=== PATIENT | male | born 1970 | race Caucasian/White ===

== ENCOUNTER 2019-02-25 15:22 | Outpatient (CLI) | payer BC, SELFPAY ==
--- NOTE | 2019-02-25 15:11 | DI.RAD_ITS ---
SYMPTOMS/DIAGNOSIS: RIGHT SHOULDER INJURY RIGHT SHOULDER: Two views were obtained. There is deformity of the humeral head consistent with old healed fracture. Mild degenerative changes noted involving the acromioclavicular and glenohumeral joints. No other significant bony abnormality seen.
== END 2019-02-25 15:42 ==
PROVIDERS: PCP Family Medicine; Visit Provider Physician Assistant
DX: S14.3XXA Injury of brachial plexus, initial encounter (principal); S43.004A Unspecified dislocation of right shoulder joint, initial encounter; M19.011 Primary osteoarthritis, right shoulder; M21.821 Other specified acquired deformities of right upper arm; Z87.81 Personal history of (healed) traumatic fracture
CPT/HCPCS: 73030

== ENCOUNTER 2019-03-06 01:14 | Outpatient (CLI) | payer BC, SELFPAY ==
--- NOTE | 2019-03-06 15:02 | DI.MRI_ITS ---
SYMPTOM/DIAGNOSIS: SHOULDER M75.01 CAPSULITIS RIGHT SHOULDER RIGHT SHOULDER MRI: Routine examination was performed. The supraspinatus, infraspinatus, teres minor , subscapularis tendons are intact. No evidence of a rotator cuff tear is seen. The rotator cuff muscle shows normal signal and size. No significant muscular fatty atrophy is identified. The biceps tendon has a normal appearance and location. The labrum appears grossly unremarkable on this noncontrast examination,. The articular cartilage at the glenohumeral joint appears well maintained. No significant focal fluid collection or soft tissue mass is appreciated. Moderate degenerative changes are seen at the acromioclavicular joint. There is mild edema seen in the greater tuberosity. No definite evidence of an occult fracture are present. IMPRESSION: No evidence of a rotator cuff or labral tear seen on this noncontrast examination. 2. Degenerative changes are seen about the shoulder particularly the acromioclavicular joint.
== END 2019-03-06 01:34 ==
PROVIDERS: PCP Family Medicine; Visit Provider Physician Assistant
DX: M75.01 Adhesive capsulitis of right shoulder (principal); M25.511 Pain in right shoulder; M19.011 Primary osteoarthritis, right shoulder
CPT/HCPCS: 73221

== ENCOUNTER 2019-03-06 16:04 | Outpatient (CLI) | payer BC, SELFPAY ==
[2019-03-08 09:46] LABS: PSA, Screening 0.8 ng/ml (0-3.5)
== END 2019-03-06 16:24 ==
PROVIDERS: PCP Family Medicine; Visit Provider Emergency Medicine
DX: Z12.5 Encounter for screening for malignant neoplasm of prostate (principal)
CPT/HCPCS: 36415; 84153

== ENCOUNTER 2019-06-11 14:37 | Outpatient (CLI) | payer BC, SELFPAY ==
--- NOTE | 2019-06-11 14:03 | DI.RAD_ITS ---
EXAM: XR SHOULDER RT COMPLETE 2+V INDICATION: ADHESIVE CAPSULITIS. COMPARISON: RIGHT SHOULDER COMPLETE from 09/13/2016 XR shoulder RT complete 2+V from 02/25/2019 TECHNIQUE: 2D digital imaging was performed. FINDINGS: There is an old healed proximal right humeral fracture. No acute fracture or dislocation is present. Degenerative changes are seen at the acromioclavicular joint. The glenohumeral joint appears well maintained. The soft tissues are unremarkable. IMPRESSION: No acute abnormality. If there is concern for internal derangement, an MRI may be obtained for furth er evaluation.
== END 2019-06-11 14:57 ==
PROVIDERS: PCP Family Medicine; Visit Provider Student in an Organized Health Care Education/Training Program
DX: M75.01 Adhesive capsulitis of right shoulder; Z87.81 Personal history of (healed) traumatic fracture
CPT/HCPCS: 73030

== ENCOUNTER 2019-12-23 11:12 | Day surgery (SDC) | payer BC, SELFPAY ==
--- NOTE | 2019-12-23 07:17 | W.COLOREPORT ---
Date of service: 12/23/19 Time of Service: 12:08 Colonoscopy Report Date of procedure: 12/23/19 Pre-op diagnosis general: Colon Cancer Screening Post-op diagnosis procedure note: other (rectal polyps) Procedure: Colonoscopy with polypectomy Surgeon: Jayda Frausto Anesthesia proc note operative: other (General/ ASA 2/Seth Macdonald CRNA ) Complications: None Disposition: no change Indications: A\\ 48 year old, healthy male, who is here to discuss his first screening colonoscopy. He has no family history of Colon Cancer and no GI complaints P\\ Colonoscopy under sedation Risks, benefits and complications have been reviewed. Complications include but are not limited to bleeding, pain, perforation, missed small lesion/polyp, sore throat, aspiration and adverse reaction to the medications. Questions were entertained and answered to their satisfaction and they wished to proceed. No guarantees were given or implied. Prep: Miralax/Dulcolax Procedure Start Time: 12:08 Procedure End Time: 12:32 Retraction Time: 16 minutes Findings: 2 small rectal polyps Procedure Description: After informed consent was obtained the patient was taken to the procedure room and placed in a left decubitous position. Monitors were applied and a time out was done. The patients name, date of , procedure, allergies to medications and metal in their body was reviewed. The patient was then sedated. Once sedated and comfortable a rectal exam was done. External exam was normal. Internal exam revealed a normal sphincter tone and no palpable masses. The prostate felt smooth and normal sized. The scope was then introduced and retro-flexed. No internal hemorrhoids, masses or polyps were identified on retro-flexion. The scope was then advanced to the cecum without difficulty. The ileocecal valve and appendiceal orifice were identified. The prep was good. The scope was then slowly retracted over 16 minutes back into the rectum. Polyps were removed with cold forceps in the rectum x 2. The scope was removed and the patient was woken up and taken back to Same day surgery in stable condition. The patient tolerated the procedure well and there were no immediate complications. Follow up: Follow up will depend on final pathology results.
--- NOTE | 2019-12-23 07:18 | PDOC.DSDIS_ITS ---
Discharge Plan Disposition Patient Disposition: HOME Condition: Good Discharge Details Reason For Visit: Colon Cancer Screening Attending Provider: Jayda Frausto Primary Care Provider: Jorge A Baker Home Meds and New Rx's Prescriptions: Continued acyclovir 800 MG tablet 2 tab PO BID PRNQty: 50 RF: 0 Discontinued bisacodyl [Dulcolax (bisacodyl)] 5 mg tablet,delayed release (DR/EC) 5 mg PO ONCE Qty: 4 RF: 0 polyethylene glycol 3350 17 gram powder in packet 255 g PO DAILY Qty: 15 RF: 0 Discharge Instructions Additional Instructions: Findings: 2 small polyps, most likely benign Follow up: most likely 10 years unless the pathology results show a pre- malignant polyp Please call if you develop: fevers >101.5 Nausea or Vomiting Abdominal pain that is not transient DAY SURGERY UNIT POST ENDOSCOPY INSTRUCTIONS 1. Because there will be medication in your system for the next 24 hours, you may feel a little sleepy. Your coordination will be affected. Therefore: a. Do not drive or operate dangerous equipment for 24 hours. b. Do not drink alcohol beverages for 24 hours (not even beer). c. Plan to go home and rest for the day. 2. Generally there are no restrictions on your activity after a day or so has gone by, but you may feel a bit fatigued for a few days. 3 After you arrive home you may have a light meal and return to a normal diet as you can tolerate it without feeling sick to your stomach. 4. After surgery, you may feel pain or discomfort. This should be only transient, but if it persists please contact your doctor. 5. If there are any questions regarding the findings of your procedure, please feel free to contact your doctor. 6. If you are unable to contact your doctor with a problem, contact the hospital at [phone]. 7. Continue all your regular medications unless directed otherwise. I understand the above instructions and have no questions. Signature of Patient or Responsible Adult Escort Date/Time Name of Responsible Adult Escort Signature of Nurse Date/Time Activity:: Activity as Tolerated Diet:: As Tolerated Discharge Orders Discharge Orders: Discharge Order (Routine); Ordered 12/23/19 Ordered By: Jayda Frausto
[2019-12-23 11:28] VITALS: BP 130/87; PULSE 58; RESP 18; TEMP 37.1; O2SAT 99
[2019-12-23] MEDS: Lactated Ringers 1,000 ML 80 ML IV (11:47)
--- NOTE | 2019-12-23 12:32 | BOWEL_PTH ---
PATIENT: Jorje Doshi LOC: [facility] U#:[id number] AGE/SX: 48/M ROOM: RE12/23/[address]: Jayda Frausto MD : [id number] BED: DIS: 12/23/2019 SPEC #: [id number] RECD: 12/23/19 12:51 STATUS: JAMAAL REQ #: [id number] BRENNA: 12/23/19 12:[address]: Jayda Frausto DEPT: Surgical Specimen RECD BY: Chantel Robbins ENTERED: 12/23/19 12:51 SP TYPE: Bowel OTHR DR: Jorge A Baker MD Tissues: 1 - BIOPSY BOWEL Procedures: GROSS AND MICRO LEVEL 4 Comments: [id number]
[2019-12-23 13:16] VITALS: BP 134/86; PULSE 59; RESP 17; TEMP 36.2; O2SAT 100
== END 2019-12-23 13:33 | disposition home or self-care (01) ==
LOC: SUR 11:12
PROVIDERS: PCP Family Medicine; Visit Provider Surgery
PROC: 0DJD8ZZ Inspection of Lower Intestinal Tract, Via Natural or Artificial Opening Endoscopic (ICD-10-PCS; CPT 45378; principal; 2019-12-23 12:00)
DX: Z12.11 Encounter for screening for malignant neoplasm of colon (principal); K62.1 Rectal polyp
CPT/HCPCS: 45380; 88305; J2001

== ENCOUNTER 2020-01-07 10:51 | Outpatient (CLI) | payer BC, SELFPAY ==
--- NOTE | 2020-01-07 10:00 | DI.RAD_ITS ---
EXAM: XR KNEE LT 3V AP,LAT,ANN CLINICAL HISTORY: left knee pain. TECHNIQUE: 2D digital imaging was performed. COMPARISON: No exams were available for comparison FINDINGS: BONES: No acute fracture is present. No bony destructive lesion is seen. JOINTS: The knee is normally aligned. No joint effusion is seen. Small osteophytes at the posterior p atella. SOFT TISSUE: Normal. IMPRESSION: Mild degenerative changes of the left knee. DATA REPOSITORY: RADIATION DOSE DELIVERED:
== END 2020-01-07 11:11 ==
PROVIDERS: PCP Family Medicine; Referring Provider Family Medicine; Visit Provider Student in an Organized Health Care Education/Training Program
DX: M25.562 Pain in left knee (principal); M17.12 Unilateral primary osteoarthritis, left knee
CPT/HCPCS: 73562

== ENCOUNTER 2020-06-01 11:45 | Emergency (ER) | payer BC, SELFPAY ==
[2020-06-01 11:55] VITALS: BP 131/90; PULSE 84; RESP 18; TEMP 36.7; O2SAT 99
--- NOTE | 2020-06-01 13:20 | W.ED.GENAD ---
Discharge Plan Disposition Patient Disposition: HOME Condition: Stable Discharge Details Clinical Impression: Finger laceration Primary Care Provider: Shaneka Fields ED Provider: Jaylen Matta Home Meds and New Rx's Prescriptions: Continued acyclovir 800 MG tablet 2 tab PO BID PRNQty: 50 RF: 0 Discharge Instructions Instructions: Finger Laceration (ED) Additional Instructions: Keep the wound clean and dry, change dressing daily. Wear splint to avoid tearing open the sutures. [id number] Tylenol and/or Motrin as directed for discomfort. Sutures removed in the next 10-14 days. Please watch for new or worsening symptoms and return to the ER for any concerns peer Discharge Data Discharge Date/Time-TO BE ENTERED AT DEPARTURE: 06/01/20 13:59 Medical Decision Making 49-year-old gentleman presents with a left fifth finger laceration, he is left-hand dominant. He sustained this shortly prior to presentation while hunting, he was moving brush. He denies numbness, tingling, weakness or any other injury. We were able to verify that his last tetanus status update was 2011. There is no active bleeding or obvious foreign body. No clear indication for x-ray at this time. Will update tetanus status and repair the laceration. Laceration repaired without difficulty. Patient tolerated well. Antibiotic dressing and AlumaFoam finger splint applied. Patient is comfortable discharge and has no additional questions or concerns Medical Records Medical records reviewed: Yes I reviewed the patient's medical records. HPI General Mode of arrival: ambulatory. Date/Time Provider Initiated Documentation: 06/01/20 11:55. Limitations to Documentation: no limitations. Information obtained by: patient. HPI Narrative: This is a 49-year-old gentleman, no significant past medical history, who is left-hand dominant. He was outside today hunting, went to move some brush and sustained a laceration to his left fifth finger. He reports minimal pain. Denies numbness, tingling, weakness, active bleeding or obvious foreign body. It appears as though his last tetanus update was back in 2011. No additional questions or concerns at this time. Related Data Home Medications Medication Instructions Recorded Confirmed acyclovir 2 tab PO BID PRN #50 tab 10/03/17 06/01/20 Allergies Allergy/AdvReac Type Severity Reaction Status Date / Time No Known Allergies Allergy Verified 06/01/20 12:02 General Stated Complaint: Laceration SAAD: 3 Review of Systems Constitutional Constitutional: Denies weakness Musculoskeletal Musculoskeletal: Denies arthralgias, Denies numbness and Denies tingling Integumentary/Breasts Skin/Breast: Denies erythema Neurologic Neurologic: Denies numbness, Denies tingling and Denies weakness [facility] Medical History Colon polyp, hyperplastic (~12/23/19) 2 hyperplastic polyps 12/23/19 Dr. 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 Paternal Grandfather No problems noted. Maternal Grandmother No problems noted. Paternal Grandmother Breast cancer Social History Smoking/Tobacco Use Status: Never Second Hand Exposure: No Smoking risk assessment performed?: Yes Alcohol Intake: current Alcohol Intake frequency: a few times a week Alcohol type: beer and wine Drug use: Occasionally Substance use type: marijuana Details: Last used last week.HE Caregiver/Support person: No Household members: family Housing: house Communication Needs: None Do you need help understanding health information?: Rarely Pets and animals: Yes Pets and animals: cat(s), dog(s) and other Details: Chickens Sexually active: Yes Do you think of yourself as: straight/heterosexual Current gender identity: male What is your relationship status?: How often do you talk on the phone with friends or family?: three or more times per week How often do you get together with friends or relatives?: once per week How often do you attend yazidi or latter-day services?: decline to answer Do you belong to any clubs or organized social groups?: no Panel score (0-1 are the most socially isolated patients): 2 What type of physical activity do you participate in: bicycling and other Details: Mountain biking, [place] skiing, Hunting & fishing, hiking Duration: 60-90 minutes/day Frequency: 5-6 times per week Mere/Alevism: Other Special mere needs: No Seatbelt use: always Helmet use: Yes Helmet use: always Drive intox or ride w/intox independent driver: No Do you feel safe at home: Yes Do you feel safe in your relationship?: Yes Exam Const General: cooperative, healthy appearing, comfortable and no acute distress Orientation: alert and awake HENMN Head: normal to inspection, normocephalic and atraumatic Eyes Conjunctivae: conjunctivae normal Neck Neck: normal visual inspection, trachea midline and supple Resp Effort & Inspection: normal respiratory effort and able to speak in complete sentences Cardio Rate: regular rate Rhythm: regular rhythm Skin General skin exam: no rashes or lesions noted Neuro General: patient alert, patient awake, moves all extremities and no focal motor deficits Sensory Exam: no sensory deficits noted Extrem General: full ROM and capillary refill normal Left upper extremity: full ROM, normal capillary refill and hand Details: normal capillary refill, neuromotor exam normal, neurosensory exam normal, tendon exam normal, normal ROM of fingers and laceration Hand/finger images: 1. 2.5 cm laceration. Minimal discomfort to palpation. No active bleeding or obvious foreign body. Full range of motion. Neuro, vascular, tendon intact Psych Appearance: grossly normal Mental Status: mental status grossly normal Course Vital Signs Vital signs: Vital Signs Temperature 36.7 C 06/01/20 11:55 Pulse 84 06/01/20 11:55 Respiratory Rate 18 06/01/20 11:55 Blood Pressure 131/90 06/01/20 11:55 Pulse Oximetry 99 06/01/20 11:55 Temperature 36.7 C 06/01/20 11:55 Temperature Source Temporal Artery Scan 06/01/20 11:55 Pulse 84 06/01/20 11:55 Respiratory Rate 18 06/01/20 11:55 Respiratory Effort 06/01/20 12:02 Blood Pressure 131/90 06/01/20 11:55 Blood Pressure Position Sitting 06/01/20 11:55 Pulse Oximetry 99 06/01/20 11:55 Oxygen Delivery Method Room Air 06/01/20 11:55 Oxygen Flow Rate 0 06/01/20 11:55 Procedures Laceration Laceration 1: Site: hand Side (If applicable): left Size (cm): 2.5 Description: linear Depth: simple, single layer Local Anesthetic: Lidocaine 2% Amount of anesthesia used (mL): 4 Pre-repair: wound explored and irrigated extensively Skin layer closed with: nylon Size (cm): 4-0 Number of sutures: 4 Technique: simple, interrupted
[2020-06-01 13:56] VITALS: BP 131/90; PULSE 84; RESP 18; TEMP 36.7; O2SAT 99
== END 2020-06-01 13:59 | disposition home or self-care (01) ==
PROVIDERS: Emergency Provider Physician Assistant
DX: S61.217A Laceration without foreign body of left little finger without damage to nail, initial encounter (principal); W26.8XXA Contact with other sharp object(s), not elsewhere classified, initial encounter
CPT/HCPCS: 12001; 90471

== ENCOUNTER 2021-01-27 02:52 | Outpatient (CLI) | payer BC, SELFPAY ==
[2021-01-27 13:13] LABS: ALT 30 U/L (16-63); AST 23 U/L (15-37); Alkaline Phosphatase 35 U/L (46-116); Anion Gap 6.7 mmol/L (3-11); BUN 13 mg/dL (7-18); Bilirubin, Total 0.4 mg/dL (0.2-1.0); CO2 28.3 mmol/L (21.0-32.0); Calculated LDL 142 mg/dL (<100); Chloride 108 mmol/L (98-107); Cholesterol 226 mg/dL (<200); Glucose 98 mg/dL (74-106); HDL Cholesterol 74 mg/dL (40-60); Potassium 4.5 mmol/L (3.5-5.1); Sodium 143 mmol/L (136-145); Total Protein 6.6 g/dL (6.4-8.2); Triglyceride 54 mg/dL (<150)
== END 2021-01-27 02:53 | disposition home or self-care (01) ==
LOC: LOS 02:53
DX: Z00.00 Encounter for general adult medical examination without abnormal findings (principal); Z13.220 Encounter for screening for lipoid disorders
CPT/HCPCS: 36415; 80053; 80061

== ENCOUNTER 2022-01-14 13:38 | Emergency (ER) | payer BC, SELFPAY ==
[2022-01-14 13:41] VITALS: BP 133/90; PULSE 80; RESP 17; TEMP 36.8; O2SAT 97
--- NOTE | 2022-01-14 15:15 | DI.RAD_ITS ---
Exam(s) XR SHOULDER RT COMPLETE 2+V EXAM: XR SHOULDER RT COMPLETE 2+V CLINICAL HISTORY: right arm weakness, old shoulder injury. TECHNIQUE: 2D digital imaging was performed. Five views. COMPARISON: CR RIGHT SHOULDER COMPLETE from 11/10/2016 FINDINGS: BONES: No acute fracture is present. No bony destructive lesion is seen. JOINTS: No dislocation present. Mild spurring glenoid and AC joint. Slight deformity at the greater tuberosity consistent with patient's history of an old fracture. SOFT TISSUE: Normal. No tendon or joint space calcifications IMPRESSION: Mild degenerative changes. Old greater tuberosity fracture. DATA REPOSITORY: RADIATION DOSE DELIVERED:
--- NOTE | 2022-01-14 15:15 | RT.EKG_ITS ---
APPROVED REPORT Exam: Resting ECG Reason for Exam: arm weakness, possible lyme Patient Location: E HR:56 bpm ECG Measurements Heart Rate 56 AXIS KS 156 P 53 QRSd 95 QRS 76 QT 422 T 29 QTc 408 Conclusion Sinus bradycardia...rate< 60 sinus bradycardia, normal intervals, normal axis, t wave inversion III
--- NOTE | 2022-01-14 15:27 | DI.CT_ITS ---
Exam(s) CT HEAD CERVICAL SPINE WO EXAM: CT HEAD CERVICAL SPINE WO CLINICAL HISTORY: right upper extremity weakness, post covid. TECHNIQUE: Imaging Protocol: Axial computed tomography images with coronal and sagittal reformatted images were created and reviewed COMPARISON: No exams were available for comparison FINDINGS: Head CT Ventricles and Extra axial spaces: Normal in size and morphology for the patient's age. Hemorrhage: None. Cerebral parenchyma: Normal. Midline shift: None. Brainstem/Cerebellum: Normal. Calvarium: Normal. Visualized Paranasal sinuses/Mastoids: Clear. Cervical Spine CT BONES: Vertebral body heights are maintained. There is bursal of the normal cervical lordosis seconda ry to degenerative changes.. There is no evidence of acute fracture. Degenerative disc changes and facet degenerative changes are seen from C4-5 through C6-7. There are endplate osteophytes which cause encroachment upon the neural foramen bilaterally, greatest at C4-5 a nd C5-6. On the right.. There is some narrowing of the AP dimension of the central canal at C4-5 an d C5-6. No disc herniation is visible. Degenerative changes are also seen at C1-2. SOFT TISSUES: No paraspinal hematoma. The airway appears intact. No pneumothorax is seen at the lung apices. IMPRESSION: Head CT: No acute abnormality. C-spine CT: Degenerative changes, no acute abnormality. RADIATION DOSE DELIVERED: 1,531.08mGy.cm Total DLP DATA REPOSITORY: All CT scans at this facility are submitted to the National Radiology Data Registry (NRDR) Dose Index Registry (DIR) with the [employer] (A[employer]). RADIATION OPTIMIZATION: All CT scans at this facility use at least one of these dose optimization te chniques: automated exposure control; mA and/or kV adjustment per patient size (includes targeted exa ms where dose is matched to clinical indication); or iterative reconstruction.
--- NOTE | 2022-01-14 15:40 | ED.GENADUL_ITS ---
Discharge Plan Disposition Patient Disposition: HOME Condition: Stable Discharge Details Chief Complaint: Orthopedic Clinical Impression: Arm weakness Primary Care Provider: Shaneka Fields ED Provider: Be Jacinto Home Meds and New Rx's Prescriptions: No Action acyclovir 800 mg tablet 1,600 mg PO BID PRN (Reason: canker) Qty: 50 0RF Discharge Instructions Instructions: Weakness (ED) Additional Instructions: Please follow-up with neurology and orthopedic surgery, please return the emergency department he develop worsening symptomatology. Your Lyme panel is pending. Medical Decision Making 51-year-old male presents with right arm weakness specifically in the region of the deltoid and trapezius over the past 1 week, also associated paresthesia of left upper extremity, active biker has been camping and sleeping on the ground, also sustained a tick bite 1 week ago, no erythema migrans reported or evident on exam, afebrile nontoxic neurologically intact except for weakness of the shoulder, nonpainful atraumatic extremity warm well perfused normal pulses sensation intact, consider mononeuropathy versus cervical radiculopathy versus Lyme neuropathy versus post-COVID neuropathy as patient has recently recovered from COVID within the last 2 weeks, versus intracranial process such as mass edema or infection however encephalitis/meningitis/intracranial abscess is less likely given history and physical versus unlikely stroke versus rotator cuff injury versus unlikely myasthenia gravis given only involving 1 limb and no cranial nerve involvement. Screening labs including tick and Lyme panel, CT head CT C-spine EKG pending labs and imaging will likely trial steroids and Toradol we will have patient follow-up with neurology and orthopedic surgery. Patient resting over the no change in clinical status. Labs and imaging largely unremarkable; evidence of possible stenosis in cervical spine that could be leading to these symptoms. Lyme panel pending. Patient to follow-up with neurology orthopedic surgery. Given home care instructions and strict return precautions. HPI General Date/Time Provider Initiated Documentation: 01/14/22 14:00 . HPI Narrative: 51-year-old male history of remote right shoulder injury, presents with right arm weakness over the past week, endorses recent camping trip in which he was bit by a tick on his right chest small local irritation without rash fever or other systemic signs of illness, also endorses very active lifestyle including backpacking and biking. Denies headache fever chills shortness of breath nausea vomiting or other neurologic symptoms. Endorses that he is unable to move his right shoulder past a certain position and cannot lift his arm above his head is having difficulty washing. No issues with balance no lower extremity weakness. Does have some tingling in his left upper extremity as well. Related Data Home Medications Medication Instructions Recorded Confirmed acyclovir 800 mg tablet 1,600 mg PO BID PRN canker #50 tabs 08/09/21 01/12/22 Previous Rx's Medication Instructions Recorded acyclovir 800 mg tablet 1,600 mg PO BID PRN canker #50 tabs 08/09/21 Allergies Allergy/AdvReac Type Severity Reaction Status Date / Time No Known Allergies Allergy Verified 02/16/21 10:26 General Stated Complaint: Orthopedic SAAD: 3 Review of Systems Narrative: Review of Systems Constitutional: negative Eyes: negative ENT: negative Cardiovascular: negative Respiratory: negative Gastrointestinal: negative : negative Musculoskeletal: negative Skin: negative Neurologic: Weakness Psych: negative PFSH All Active Problems (Updated 01/14/22 @ 17:16 by Be Jacinto MD) Arm weakness (Acute) Soft tissue infection (Acute) Back pain (Acute) Screening cholesterol level (Acute) Encounter for annual physical exam (Acute) Screening for colon cancer (Acute) Medical History Back pain Colon polyp, hyperplastic (~12/23/19) 2 hyperplastic polyps 12/23/19 Dr. 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 Paternal Grandfather No problems noted. Maternal Grandmother No problems noted. Paternal Grandmother Breast cancer Sister No problems noted. Sister No problems noted. Daughter No problems noted. Daughter No problems noted. Social History (Updated 02/17/21 @ 15:35 by Meghan Euceda) Smoking/Tobacco Use Status: Never Second Hand Exposure: No Smoking risk assessment performed?: Yes Alcohol Intake: current Alcohol Intake frequency: a few times a week Alcohol type: beer Drug use: Occasionally Substance use type: marijuana Details: Last used last week.HE Household members: spouse Housing: house Communication Needs: None Do you need help understanding health information?: Rarely Pets and animals: Yes Pets and animals: cat(s), dog(s) and other Details: Chickens Sexually active: Yes Do you think of yourself as: straight/heterosexual Current gender identity: male What is your relationship status?: How often do you talk on the phone with friends or family?: three or more times per week How often do you get together with friends or relatives?: once per week How often do you attend latter day or zoroastrian services?: decline to answer Do you belong to any clubs or organized social groups?: no Panel score (0-1 are the most socially isolated patients): 2 What type of physical activity do you participate in: bicycling and other Details: Mountain biking, [place] skiing, Hunting & fishing, hiking Duration: 60-90 minutes/day Frequency: 5-6 times per week Mere/Mandaen: None Special mere needs: No Seatbelt use: always Helmet use: Yes Helmet use: always Drive intox or ride w/intox commercial trailer truck driver: No Do you feel safe at home: Yes Do you feel safe in your relationship?: Yes Exam Narrative Exam Narrative: Physical Examination General: alert, awake, cooperative, resting comfortably, no acute distress HEENT: normocephalic, atraumatic; PERRL, EOM intact, conjunctiva normal; no nasal discharge; moist mucous membranes, oral and pharyngeal mucosa normal, tolerating secretions Neck: supple, trachea midline; full ROM Chest: normal to inspection Respiratory: normal respiratory effort, speaking in full sentences, clear to auscultation, no wheezing, rales or rhonchi Cardiac: regular rate, regular rhythm, S1S2 intact, no murmurs rubs or gallops GI: abdomen soft, non-tender, non-distended; no palpable mass or hepatosplenomegaly Skin: no lesions, rashes or trauma appreciated Neuro: AAOx3, normal speech, cranial nerves II through XII intact, 5/5 strength left upper left lower and right lower extremities, full strength in right hand wrist and elbow, is only able to lift his arm to about 90 degrees abduction and extension at shoulder, he is to use his left arm to assist his right arm above his head, sensation to light touch median radial ulnar nerve distribution equal bilaterally, no ataxia, ambulatory without assistance Extremities: No deformity to extremities, no crepitus, no laxity Psych: Appropriate mood and affect Course Vital Signs Vital signs: Vital Signs Temperature 36.8 C 01/14/22 13:41 Pulse 80 01/14/22 13:41 Respiratory Rate 17 01/14/22 13:41 Blood Pressure 133/90 01/14/22 13:41 Pulse Oximetry 97 01/14/22 13:41 Temperature 36.8 C 01/14/22 13:41 Temperature Source Temporal Artery Scan 01/14/22 13:41 Pulse 80 01/14/22 13:41 Respiratory Rate 17 01/14/22 13:41 Respiratory Effort 01/14/22 14:40 Blood Pressure 133/90 01/14/22 13:41 Blood Pressure Position Sitting 01/14/22 13:41 Pulse Oximetry 97 01/14/22 13:41 Oxygen Delivery Method Room Air 01/14/22 13:41 Oxygen Flow Rate 0 01/14/22 13:41
[2022-01-14 15:44] LABS: Abs Immature Grans 0.01 10^3/uL (0.0-0.06); Absolute Basophil Count 0.03 10^3/uL (0.0-0.2); Absolute Eosinophil Count 0.07 10^3/uL (0.0-0.7); Absolute Lymphocyte Count 1.22 10^3/uL (1.2-3.4); Absolute Monocyte Count 0.35 10^3/uL (0.1-0.8); Absolute Neutrophil Count 2.46 10^3/uL (1.2-6.7); Basophils % 0.7; Eosinophils % 1.7; HCT 45.9 % (40.0-50.0); HGB 15.7 g/dL (13.5-17.5); Immature Grans % 0.2; Lymphocytes % 29.5; MCH 30.4 pg (27.0-33.0); MCHC 34.2 % (32.0-36.0); MCV 89 fL (80-95); MPV 10.1 fL (8.0-11.0); Monocytes % 8.5; Neutrophils % 59.4; Platelet Count 212 10^3/uL (130-400); RBC 5.17 10^6/uL (4.36-5.78); RDW 12.3 % (11.8-14.1); RDW-SD 40.8 fL; WBC 4.14 10^3/uL (4.4-10.8)
[2022-01-14 16:07] LABS: ALT 30 U/L (16-63); AST 24 U/L (15-37); Albumin 4.2 g/dL (3.4-5.0); Alkaline Phosphatase 37 U/L (46-116); Anion Gap 5.4 mmol/L (3-11); BUN 18 mg/dL (7-18); Bilirubin, Total 0.3 mg/dL (0.2-1.0); CO2 31.6 mmol/L (21.0-32.0); CREATININE 0.8 mg/dL (0.70-1.30); Calcium 8.8 mg/dL (8.5-10.1); Chloride 102 mmol/L (98-107); Glucose 91 mg/dL (74-106); Potassium 4.1 mmol/L (3.5-5.1); Sodium 139 mmol/L (136-145); TSH (W/Ref FT4) 1.58 uIU/mL (0.36-3.74); Total Protein 7.4 g/dL (6.4-8.2)
--- NOTE | 2022-01-14 17:11 | NUR.NOTE ---
Nursing Note: PT INFO FAXED TO NEUROLOGY FOR FOLLOW UP NEXT WEEK FOR ARM WEAKNESS. TRESA, ED
[2022-01-14] MEDS: Dexamethasone 10 MG/ML VIAL IM (17:23)
[2022-01-14] MEDS: Ketorolac 15 MG/ML VIAL IM (17:23)
[2022-01-17 12:29] LABS: Lyme Ab w Rflx to Lyme Confirm Negative (Negative)
[2022-01-19 12:00] LABS: Anaplasma phagocytophilum Negative (Negative); B. miyamotoi PCR Negative (Negative); Babesia divergens/MO-1 Negative (Negative); Babesia duncani Negative (Negative); Babesia microti Negative (Negative); Ehrlichia chaffeensis Negative (Negative); Ehrlichia ewingii/canis Negative (Negative); Ehrlichia muris eauclairensis Negative (Negative)
== END 2022-01-14 17:29 | disposition home or self-care (01) ==
PROVIDERS: Emergency Provider Emergency Medicine
DX: R53.1 Weakness (principal); R20.2 Paresthesia of skin; T14.8XXA Other injury of unspecified body region, initial encounter; W57.XXXA Bitten or stung by nonvenomous insect and other nonvenomous arthropods, initial encounter; Z86.16 Personal history of COVID-19
CPT/HCPCS: 80053; 87798; 93005; 96372; 99285; 70450; 72125; 73030; 84443; 85025; 86618; 93010; 99283; J1100; J1885

== ENCOUNTER 2022-01-17 03:33 | Outpatient (CLI) | payer BC, SELFPAY ==
[2022-01-17 09:06] LABS: HCT 42.7 % (40.0-50.0); HGB 14.6 g/dL (13.5-17.5); MCH 30.3 pg (27.0-33.0); MCHC 34.2 % (32.0-36.0); MCV 89 fL (80-95); MPV 10.4 fL (8.0-11.0); Platelet Count 266 10^3/uL (130-400); RBC 4.82 10^6/uL (4.36-5.78); RDW 12.7 % (11.8-14.1); RDW-SD 41.6 fL; WBC 5.57 10^3/uL (4.4-10.8)
[2022-01-17 10:34] LABS: ALT 23 U/L (16-63); AST 12 U/L (15-37); Albumin 3.8 g/dL (3.4-5.0); Alkaline Phosphatase 32 U/L (46-116); BUN 19 mg/dL (7-18); Bilirubin, Total 0.2 mg/dL (0.2-1.0); CREATININE 0.9 mg/dL (0.70-1.30); Calcium 8.5 mg/dL (8.5-10.1); Chloride 107 mmol/L (98-107); Glucose 103 mg/dL (74-106); Potassium 4.2 mmol/L (3.5-5.1); Sodium 144 mmol/L (136-145); TSH (W/Ref FT4) 1.25 uIU/mL (0.36-3.74); Total Protein 6.5 g/dL (6.4-8.2); Vitamin B12 475 pg/mL (193-986)
[2022-01-17 10:47] LABS: Creatine Kinase 58 U/L (39-308)
[2022-01-18 09:36] LABS: HIV-1/2 Ag & Ab Screen Negative (Negative)
[2022-01-18 10:42] LABS: Lyme Ab w Rflx to Lyme Confirm Negative (Negative)
[2022-01-19 08:49] LABS: Anaplasma phagocytophilum Negative (Negative); B. miyamotoi PCR Negative (Negative); Babesia divergens/MO-1 Negative (Negative); Babesia duncani Negative (Negative); Babesia microti Negative (Negative); Ehrlichia chaffeensis Negative (Negative); Ehrlichia ewingii/canis Negative (Negative); Ehrlichia muris eauclairensis Negative (Negative)
[2022-01-20 09:08] LABS: Hepatitis C Ab w Rflx HCV PCR Negative (Negative)
== END 2022-01-17 03:34 | disposition home or self-care (01) ==
LOC: LBO 03:33
PROVIDERS: Visit Provider Family Medicine
DX: I10 Essential (primary) hypertension (principal); R29.898 Other symptoms and signs involving the musculoskeletal system; M25.811 Other specified joint disorders, right shoulder; Z13.6 Encounter for screening for cardiovascular disorders; Z11.4 Encounter for screening for human immunodeficiency virus [HIV]; Z11.59 Encounter for screening for other viral diseases
CPT/HCPCS: 36415; 80053; 82550; 85027; 86803; 87389; 87798; 82607; 84443; 86618

== ENCOUNTER → 2022-02-10 02:16 | Outpatient (CLI) | payer BC, SELFPAY ==
--- NOTE | 2022-02-10 06:45 | DI.MRI_ITS ---
Exam(s) MR CHEST WO EXAM: MR CHEST WO CLINICAL HISTORY: Profound upper extremity weakness,injury rt brachial plexus,[id number] TECHNIQUE: Multiplanar multisequence MRI of the brachial plexus was performed. COMPARISON: CR XR shoulder RT complete 2+V from 02/25/2019 CR XR SHOULDER RT COMPLETE 2+V from 06/11/2019 CR XR SHOULDER RT COMPLETE 2+V from 01/14/[address] HEAD CERVICAL SPINE WO from 01/14/2022 MR MR UPPER JOINT RT WO from 02/10/2022 FINDINGS: The marrow signal is normal. The cervical cord signal appears intact. There is no evidence of mass in the paraspinal soft tissues or right lung apex. The cervical nerve roots appear symmetric bilate rally. No focal surrounding edema is seen. There are degenerative changes at the AC joint and great er tuberosity. There are degenerative disc changes in the cervical spine with endplate osteophytes e ncroaching into the right neural foramen at C3-4, C4-5 and C5-6. There is mild neural foraminal encr oachment at C 6 7 on the left. The osteophytes cause narrowing of the AP dimension of the central ca nal from C4-5 through C6-7. IMPRESSION: Degenerative disc changes causing narrowing of the AP dimension of the central canal from C4-5 throug h C6-7 as well as bilateral neural foraminal narrowing, greater on the right. No brachial plexus abn ormality is identified. DATA REPOSITORY:
--- NOTE | 2022-02-10 06:45 | DI.MRI_ITS ---
Exam(s) MR UPPER JOINT RT WO EXAM: MR UPPER JOINT RT WO CLINICAL HISTORY: Significant weakness,rt rotator cuff tear,m75.101. TECHNIQUE: Multiplanar multisequence MRI was performed. COMPARISON: None. FINDINGS: The exam is somewhat limited by patient motion. There are degenerative changes at the AC joint which appear to cause mild impingement on the supraspinatus muscle tendon junction. There is no significa nt fluid in the subacromial subdeltoid bursa or glenohumeral joint. There are degenerative changes a t the greater tuberosity with subchondral cysts. The supraspinatus, infraspinatus, teres minor and b iceps tendons appear intact. There is some thickening of the subscapularis tendon near the lesser tu berosity but no evidence of a discrete tear. The biceps tendon appears intact. The labrum is subopt imally evaluated due to lack surrounding fluid or contrast. IMPRESSION: Subscapularis tendinosis. No evidence of rotator cuff tear. DATA REPOSITORY:
== END ==
PROVIDERS: Visit Provider Student in an Organized Health Care Education/Training Program
DX: M19.011 Primary osteoarthritis, right shoulder (principal); S14.3XXA Injury of brachial plexus, initial encounter; M50.321 Other cervical disc degeneration at C4-C5 level; M50.323 Other cervical disc degeneration at C6-C7 level; X58.XXXA Exposure to other specified factors, initial encounter
CPT/HCPCS: 71550; 73221

== ENCOUNTER 2022-02-17 01:35 | Outpatient (CLI) | payer BC, SELFPAY ==
[2022-02-17 13:14] LABS: ALT 35 U/L (16-63); AST 29 U/L (15-37); Albumin 4.2 g/dL (3.4-5.0); Alkaline Phosphatase 35 U/L (46-116); Anion Gap 6.4 mmol/L (3-11); BUN 18 mg/dL (7-18); Bilirubin, Total 0.4 mg/dL (0.2-1.0); CO2 31.6 mmol/L (21.0-32.0); Calculated LDL 142 mg/dL (<100); Chloride 104 mmol/L (98-107); Cholesterol 213 mg/dL (<200); Glucose 102 mg/dL (74-106); HDL Cholesterol 62 mg/dL (40-60); Potassium 4.9 mmol/L (3.5-5.1); Sodium 142 mmol/L (136-145); Total Protein 7.1 g/dL (6.4-8.2); Triglyceride 48 mg/dL (<150)
== END 2022-02-17 01:36 | disposition home or self-care (01) ==
LOC: LOS 01:35
DX: Z00.00 Encounter for general adult medical examination without abnormal findings (principal); Z13.220 Encounter for screening for lipoid disorders
CPT/HCPCS: 36415; 80053; 80061

== ENCOUNTER → 2022-03-25 00:16 | Outpatient (CLI) | payer BC, SELFPAY ==
--- NOTE | 2022-03-25 06:30 | DI.MRI_ITS ---
Exam(s) MR CERVICAL SPINE WO EXAM: MR CERVICAL SPINE WO CLINICAL HISTORY: R brachial plexopathy and L radicular sx,cervical stenosis,m48.02 TECHNIQUE: Multiplanar multisequence MRI of the cervical spine was performed without intravenous con trast. COMPARISON: No plain films cervical spine available time this MRI interpretation. FINDINGS: CERVICOMEDULLARY JUNCTION: Intact with no evidence of cerebellar tonsillar ectopia. No obvious abnor mality of the odontoid process. No evidence of Chiari 1 malformation. CERVICAL SPINAL CORD: There is no abnormal signal in the cervical spinal cord and no evidence of foca l cord atrophy nor focal cord swelling. OSSEOUS:There are no cervical fractures evident. No significant osseous lesions in the cervical vert ebrae. Modic type 1 sub endplate marrow edema changes are seen on both sides of C6-7 disc space leve l. There is also some mild reversal of the cervical curvature, most probably related to chronic musc le spasm. INDIVIDUAL LEVELS: C2-3: No disc herniation nor central canal stenosis. No foraminal stenosis. No facet arthropathy. C3-4: Mild uniform disc space narrowing.Mild annular bulging which is slightly more prominent right o f center. This partially effaces the thecal sac but does not contact the cord. Central canal dimens ions are lower normal. There is no significant facet arthropathy on the left side. Mild facet arthr opathy on the right side. There is some foraminal stenosis on the right side. C4-5: Mild-moderate disc space narrowing also seen at this level. There is annular bulging with a doe perimposed small posterolateral right disc protrusion. This slightly indents the thecal sac at this level.Posterior annular bulging also significantly indents the thecal sac. Mild central canal stenos is evident. There is moderate degenerative change in the right facet joint at this level and moderat e right-sided foraminal stenosis. Left facet joint appears unremarkable and there is minimal narrowi ng of the exiting left neural foramen. C5-6: Chronic-type disc space narrowing. Bilateral Luschka joint osteophytes. Broad annular bulging which effaces the anterior thecal sac. There is mild central canal stenosis. No obvious abnormal s ignal in the spinal cord. There is also a small superimposed posterolateral right disc protrusion. Disc-osteophyte complexes bilaterally result in moderate bilateral foraminal stenosis at this level. There are some degenerative changes in the right facet joint; less so in the left facet joint. C6-7: This level also exhibits bilateral disc-Luschka joint osteophytes complexes. However, there is no CT broad annular bulging as is evident in the other levels described above and central canal dime nsions are within normal limits at this level with no significant effacement of the thecal sac eviden t at this level. There are mild degenerative changes in both facet joints. There is moderate forami nal narrowing bilaterally. C7-T1: No disc herniation nor central canal stenosis. Minimal facet arthropathy.No foraminal stenosis . IMPRESSION: 1. Multilevel chronic degenerative disc disease as described above. 2. There is an element of mild central canal stenosis at C4-5 and C5-6 levels and there is also jose alfredo inal stenosis at these levels, more so right than left. Relatively symmetrical foraminal stenosis no [place] bilaterally at C6-7 level. 3. Modic type 1 sub endplate marrow edema changes are noted at C6-7 level. No ominous osseous lesion s. No abnormal signal in the cervical spinal cord. No abnormal cord swelling nor cord atrophy. No syringomyelia. Straightening of the cervical curvature noted. DATA REPOSITORY:
== END ==
PROVIDERS: Visit Provider Psychiatry & Neurology Neurology
DX: M48.02 Spinal stenosis, cervical region (principal); M50.321 Other cervical disc degeneration at C4-C5 level
CPT/HCPCS: 72141

== ENCOUNTER → 2024-02-07 15:54 | Outpatient (CLI) | payer BC, SELFPAY ==
--- NOTE | 2024-02-07 13:28 | DI.RAD_ITS ---
Exam(s) XR FINGER LT INDEX EXAM: XR FINGER LT INDEX CLINICAL HISTORY: finger, MCP. Left handed. M79.645 PAIN LEFT FINGER. TECHNIQUE: 2D digital imaging was performed. Three views. COMPARISON: None. FINDINGS: BONES: No acute fracture is present. No bony destructive lesion is seen. JOINTS: No dislocation present. SOFT TISSUE: Normal. IMPRESSION: No evidence of acute fracture, dislocation, or subluxation. DATA REPOSITORY: RADIATION DOSE DELIVERED:
== END ==
PROVIDERS: PCP Nurse Practitioner Family; Visit Provider Physician Assistant
DX: M79.645 Pain in left finger(s) (principal)
CPT/HCPCS: 73140

== ENCOUNTER 2024-02-08 08:52 | Outpatient (CLI) | payer BC, SELFPAY ==
--- NOTE | 2024-02-08 08:45 | RT.EKG_ITS ---
APPROVED REPORT Exam: Resting ECG Reason for Exam: Family hx Patient Location: O HR:49 bpm ECG Measurements Heart Rate 49 AXIS TX 152 P 49 QRSd 92 QRS 72 QT 440 T 31 QTc 398 Conclusion Sinus bradycardia...rate< 50 Otherwise normal ECG
== END 2024-02-08 08:53 | disposition home or self-care (01) ==
LOC: DI.CM 08:54
PROVIDERS: PCP Nurse Practitioner Family; Visit Provider Nurse Practitioner Family
DX: Z82.49 Family history of ischemic heart disease and other diseases of the circulatory system (principal); R00.1 Bradycardia, unspecified; M79.645 Pain in left finger(s); R42 Dizziness and giddiness
CPT/HCPCS: 93010

== ENCOUNTER 2024-03-25 03:28 | Outpatient (CLI) | payer BC, SELFPAY ==
--- NOTE | 2024-03-25 08:45 | DI.US_ITS ---
APPROVED REPORT EXAM: Comprehensive 2D, Doppler, and color-flow Echocardiogram Patient Location: Out-Patient Staff Home Therapy Rn: Iris Bowen RDCS (AE) Indications: Screening, Family HX Cardiomyopathy Other Information Study Quality: Adequate Conclusion Normal left ventricular wall thickness and chamber size. Ejection fraction is 59%. Wall motion is n ormal Normal right ventricular size and function Both atria are normal in size There is no structural or hemodynamically significant valvular disease Wall motion Left Ventricle The left ventricle is normal size. The left ventricular systolic function is normal. The left ventric ular ejection fraction is within the normal range. There is normal left ventricular wall thickness. T here is normal LV segmental wall motion. There is no ventricular septal defect visualized. LVEF is 59 %. Right Ventricle The right ventricle is normal size. The right ventricular systolic function is normal. Atria The left atrium size is normal. The right atrium size is normal. The interatrial septum is intact wit h no evidence for an atrial septal defect. Aortic Valve The aortic valve is normal in structure. Aortic valve is trileaflet. There is no aortic valvular sten osis. No aortic regurgitation is present. Mitral Valve The mitral valve is normal in structure. No evidence of mitral valve stenosis. Trace mitral regurgita tion. Tricuspid Valve The tricuspid valve is normal in structure. There is no tricuspid valve stenosis. Trace tricuspid reg urgitation. Unable to assess PA pressure. Pulmonic Valve The pulmonary valve is normal in structure. There is no pulmonic valvular stenosis. Trace pulmonic re gurgitation. Great Vessels The aortic root is normal in size. The ascending aorta is normal in size. Aortic arch is not well vis ualized. IVC is normal in size and collapses >50% with inspiration. Pericardium There is no pericardial effusion. 2D Dimensions IVSD d PLAX 0.80 cm M: 0.6-1.2 Ao Root d 3.30 cm M: 3.1 - 3.7 LVPW d PLAX 0.80 cm M: 0.6 - 1.2 Ao Asc Diam d 2.99 cm M: 2.6 - 3.4 LVID d PLAX 4.92 cm M: 4.2 - 5.8 LVDs 3.30 cm M: 2.5 - 4.0 LV EF Teichholz 61.3 % FS 32.96 % LV EDV (Teich) 113.9 mL LV ESV (Teich) 44.1 mL M-Mode TAPSE 2.33 cm (M/F) >1.7 Auto EF LV EDV A4C 127.1 mL LV EDV A2C 147.7 mL LV EDV BP 137.8 mL LV ESV A4C 53.8 mL LV ESV A2C 61.4 mL LV ESV BP 58.3 mL LVEF(%) A4C 57.6 % LVEF(%) A2C 58.4 % LVEF(%) BP 57.7 % LV SV A4C 73.2 ml LV SV A2C 86.3 ml LV SV BP 79.5 ml LV CO A4C 4.2 L/min LV CO A2C 5.0 L/min LV CO BP 4.6 L/min HR A4C 57.79 BPM HR A2C 58.07 BPM LV EDV Index (BP) LA Volume LA Length A4C 4.3 cm LA Length A2C 4.1 cm LA Area A4C s 12.40 cm2 LA Area A2C s 16.86 cm2 LA Vol A4C A-L 30.21 mL LA Vol A2C A-L 58.27 mL LA Vol Biplane A-L 42.8 mL LA Vol/BSA A4C A-L LA Vol/BSA A2C A-L LA Vol/BSA BP A-L 22.4 mL/m2 LA Vol A4C MOD 27.3 mL LA Vol A2C MOD 52.8 mL LA Vol BP MOD 38.5 mL RA Volume RA Area A4C 12.0 cm2 RA ESV A4C (A-L) 30.9mL RA Vol/BSA A4C A-L RA Length A4C 3.9 cm RA ESV A4C (MOD) 28.4mL LV Diastology MV E' medial 0.118 (>0.07 m/s) MV E Vmax 0.77 (0.4-1.3 m/s) MV E/E' MED 6.51 (<14) MV A Vmax 0.65 (0.4-1.3 m/s) MV E' lateral 0.138 (>0.1 m/s) E/A Ratio 1.2 MV E/E' LAT 5.54 (<14) MV E' Average 0.128 m/s MV E/E'(average) 5.98 Aortic Valve AoV Vmax 1.05 m/s LVOT Vmax 1.04 m/s AoV Peak Grad 4.4 mmHg LVOT Peak Grad 4.4 mmHg AoV Area (Vmax) 3.02 cm2 LVOT VTI 0.217 m AoV VTI 0.228 m LVOT Mean Grad 2.4 mmHg AoV Mean Marc. 0.68 m/s LVOT SV 66.20 mL AoV Mean Grad 2.2 mmHg LVOT Diam s 1.95 cm AoV Area (VTI) 2.90 cm2 AV Regurg Peak Gr. 4.44 mmHg Velocity Ratio 0.99 Mitral Valve MV DT 168 (160-240 msec) MV Vmax TIPS 0.63 m/s MV Mean Grad 0.9 (<2mmHg) MV VTI 0.231 m Pulmonary Valve PV Vmax 0.88 (0.5-1.5 m/s) RVOT Vmax 0.65 m/s PV Peak Grad 3.1 mmHg RVOT Peak Gr. 1.7 mmHg PV Mean Marc 0.64 m/s RVOT VTI 0.136 m PV Mean Grad 1.8 mmHg RVOT Mean Gr. 0.9 mmHg Tricuspid Valve RA Pressure 3.00 mmHg TV S' 0.15 m/s
== END 2024-03-25 03:48 ==
LOC: DI 03:28
PROVIDERS: PCP Nurse Practitioner Family; Visit Provider Nurse Practitioner Family
DX: Z82.49 Family history of ischemic heart disease and other diseases of the circulatory system (principal); R42 Dizziness and giddiness; R00.1 Bradycardia, unspecified; R06.02 Shortness of breath
CPT/HCPCS: 93306

== ENCOUNTER 2025-02-12 02:26 | Outpatient (CLI) | payer BC, SELFPAY ==
[2025-02-12 13:03] LABS: ALT 35 U/L (16-63); AST 34 U/L (15-37); Albumin 4.1 g/dL (3.4-5.0); Alkaline Phosphatase 42 U/L (46-116); Anion Gap 8.6 mmol/L (3-11); BUN 24 mg/dL (7-18); Bilirubin, Total 0.7 mg/dL (0.2-1.0); CO2 29.4 mmol/L (21.0-32.0); Calcium 9.2 mg/dL (8.5-10.1); Chloride 105 mmol/L (98-107); Estimated GFR 88.33 (mL/min/1.73m2); Glucose 88 mg/dL (74-106); Potassium 3.9 mmol/L (3.5-5.1); Sodium 143 mmol/L (136-145); Total Protein 7.0 g/dL (6.4-8.2)
[2025-02-12 21:43] LABS: PSA, Screening 0.8 ng/mL (<=3.5)
[2025-02-12 22:49] LABS: HBs Antibody, Quant 9.5 mIU/mL (See Note); Hepatitis B Surface Antigen Negative (Negative)
[2025-02-17 16:47] LABS: Apolipoprotein B, Serum 91 mg/dL; Beta VLDL Cholesterol Not Detected mg/dL (<15); Beta VLDL Triglycerides Not Detected mg/dL (<15); Cholesterol, Total, CDC 212 mg/dL; Chylomicron Cholesterol Not Detected; Chylomicron Triglycerides Not Detected; HDL Cholesterol, CDC 71 mg/dL (>=40); LpX Not detected; Triglycerides, CDC 57 mg/dL; VLDL Triglycerides 12 mg/dL (<120)
== END 2025-02-12 02:27 | disposition home or self-care (01) ==
LOC: LOS 02:26
PROVIDERS: PCP Nurse Practitioner Family; Visit Provider Nurse Practitioner Family
DX: Z13.220 Encounter for screening for lipoid disorders (principal); Z12.5 Encounter for screening for malignant neoplasm of prostate; Z11.59 Encounter for screening for other viral diseases
CPT/HCPCS: 36415; 80053; 80061; 84153; 86704; 86706; 87340; 82172; 82664

== ENCOUNTER 2025-05-12 15:15 | Outpatient (CLI) | payer BC, SELFPAY ==
--- NOTE | 2025-05-12 15:30 | DI.RAD_ITS ---
Exam(s) XR HIP RT COMPLETE AP PELVIS EXAM: XR HIP RT COMPLETE AP PELVIS CLINICAL HISTORY: RIGHT HIP PAIN. TECHNIQUE: 2D digital imaging was performed. COMPARISON: No exams were available for comparison FINDINGS: Two views No evidence of pelvic nor hip fracture or hip joint space narrowing. However, there is a nonexpansile subarticular cyst in the head of the right femur. There is no degenerative subarticular cysts seen in the right acetabulum. However on the opposite-left side there is a subarticular cyst in the superolateral aspect of the acetabulum measuring approximately 1.8 by 1.7 cm. There is no obvious abnormality in the left femoral head. Graph sacroiliac joints appear unremarkable. There is asymmetric left-sided disc space narrowing at L4-5 level noted in the partially included lumbar spine. IMPRESSION: Subarticular cyst in the right femoral head measuring 11 by 6 mm. Larger subarticular cyst is seen in the superolateral aspect of the left hip acetabulum. There is no degenerative narrowing of either hip joint. DATA REPOSITORY: RADIATION DOSE DELIVERED:
== END 2025-05-12 15:16 | disposition home or self-care (01) ==
LOC: DIORS 05-13 08:56
PROVIDERS: PCP Nurse Practitioner Family; Visit Provider Student in an Organized Health Care Education/Training Program
DX: M25.551 Pain in right hip (principal); M86.651 Other chronic osteomyelitis, right thigh
CPT/HCPCS: 73502